=== PATIENT | female | born 1950 | race Caucasian/White ===

== ENCOUNTER → 2019-07-29 13:33 | Outpatient (CLI) | payer SELFPAY, OTHER ==
--- NOTE | 2019-07-29 13:44 | RAD_ITS ---
STUDY: X-RAY - LUMBAR SPINE REASON FOR EXAM: Female, 68 years old. TECHNIQUE: 3 view(s) of the lumbar spine were obtained. COMPARISON: None FINDINGS: The vertebral bodies are of normal height. There is mild narrowing of the intervertebral disc space at L2-3 slightly more narrowing seen at the level of L3-4 with vacuum phenomena. The disc at the level of L4-5 is maintained but there is minimal slippage of L4 on L5. No pars articularis defect seen. There is narrowing of the intervertebral disc at L5-S1. Mild anterior osteophyte formations noted. The spinous and transverse processes as well as the pedicles are intact. The apophyseal joints showed moderate hypertrophic changes. RAD/Lumbar Spine 2 or 3 Views IMPRESSION: Degenerative disc disease at the levels described above with minimal slippage of L4 on L5. Electronically Signed: Sj Puente, at 16:21 EST Tel , Service support ,
== END ==
PROVIDERS: Referring Provider Anesthesiology Pain Medicine; Visit Provider Anesthesiology Pain Medicine
DX: M51.36 Other intervertebral disc degeneration, lumbar region (principal)
CPT/HCPCS: 72100